=== PATIENT | female | born 1960 | race Caucasian/White ===

== ENCOUNTER → 2018-02-03 10:47 | Outpatient (CLI) | payer BC, SELFPAY ==
--- NOTE | 2018-02-03 10:49 | MM_ITS ---
MM Dig screening mamm BI w/CAD CAD Screening COMPARISON: Digital mammograms 09/17/2014 and 07/09/2013 INDICATION: There is a history of breast cancer patient's mother diagnosed after menopause TECHNIQUE: Standard CC and MLO images were obtained. R2 CAD reviewed. FINDINGS: The breasts are composed primarily of fat with minimal scattered fiber glandular densities throughout each breast. There are few benign-appearing calcifications left breast. There is no suspicious lesion and there are no suspicious microcalcifications. IMPRESSION: Fibrofatty parenchyma with no suspicious lesion seen BI-RADS Category: 2 Benign Finding(s) RECOMMENDED FOLLOW-UP: 1YR - 1 YEAR FOLLOW-UP (A letter has been sent to the patient regarding results of the study.)
== END ==
PROVIDERS: PCP Internal Medicine Adolescent Medicine; Visit Provider Obstetrics & Gynecology
DX: Z12.31 Encounter for screening mammogram for malignant neoplasm of breast (principal)
CPT/HCPCS: 77067

== ENCOUNTER → 2021-10-05 12:42 | Outpatient (CLI) | payer MEDICAID, SELFPAY | PROVIDERS: PCP Internal Medicine Adolescent Medicine; Visit Provider Internal Medicine Adolescent Medicine | DX: R40.0 Somnolence; G47.33 Obstructive sleep apnea (adult) (pediatric) | CPT/HCPCS: 95806 ==

== ENCOUNTER → 2022-04-12 08:14 | Outpatient (CLI) | payer MEDICAID, SELFPAY ==
--- NOTE | 2022-04-12 08:20 | MM_ITS ---
PROCEDURE INFORMATION: Exam: MG Bilateral Screening 3D Mammography Exam date and time: 04/12/2022 8:24 AM Age: 61 years old Clinical indication: Screening examination. Her mother had breast cancer at age 60. TECHNIQUE: Imaging protocol: Bilateral Screening tomosynthesis and 2D mammography including computer-aided detection (CAD) when performed. COMPARISON: 1. MG SCBI MM Dig screening mamm BI w/CAD 02/03/2018 11:04 AM 2. MG DMSB DIG MAMM-SCREEN SHANNON 09/17/2014 10:16 AM 3. MG DMSB DIG MAMM-SCREEN SHANNON 07/09/2013 9:42 AM 4. MG DMSB DIGITAL MAMM-SCREEN BILATERAL 07/03/2012 8:33 AM FINDINGS: MAMMOGRAPHY: Breast composition: The breasts are almost entirely fatty. Mass: Oval 0.6 cm mass in the inner lower aspect of the right subareolar region, anterior 3rd. Architectural distortion: None. Calcifications: No suspicious calcifications. Asymmetric density: None. Skin thickening: None. Axillary adenopathy: None. IMPRESSION: Patient to be recalled for right sonography for further evaluation of right breast mass. ASSESSMENT: BI-RADS Category 0: Incomplete- Need Additional Imaging Evaluation and/or Prior Mammograms for Comparison
== END ==
PROVIDERS: PCP Internal Medicine Adolescent Medicine; Visit Provider Internal Medicine Adolescent Medicine
DX: Z12.31 Encounter for screening mammogram for malignant neoplasm of breast (principal)
CPT/HCPCS: 77063; 77067

== ENCOUNTER → 2022-04-27 14:12 | Outpatient (CLI) | payer MEDICAID, SELFPAY ==
--- NOTE | 2022-04-27 14:23 | US_ITS ---
FINAL REPORT CLINICAL HISTORY: LYMPHADENITIS FINDINGS: SOFT TISSUE NECK ULTRASOUND Limited sonographic images were obtained of the soft tissues of the neck. The parotid and submandibular glands are unremarkable bilaterally. There are several borderline sized and mildly enlarged bilateral neck lymph nodes. Largest node is on the left measuring up to 2.2 cm. IMPRESSION: Nonspecific borderline sized and mildly enlarged bilateral lymph nodes may be reactive. Should symptoms persist follow-up ultrasound or neck CT may be helpful. Reviewed, Interpreted and Dictated by Pawan Lambert III, MD Transcribed by Steve Lake Authenticated and [facility]
--- NOTE | 2022-04-27 14:58 | US_ITS ---
PROCEDURE INFORMATION: Exam: US Right Breast, Complete Exam date and time: 04/27/2022 3:44 PM Age: 61 years old Clinical indication: Recall on the basis of screening mammogram 04/12/2022 for sonographic evaluation 0.6 cm mass in the inner lower aspect of the right subareolar region TECHNIQUE: Imaging protocol: Complete ultrasound of all four quadrants of the Right breast and the retroareolar regions, including ultrasound of the axilla when performed. COMPARISON: MG MM DIG SCREENING MAMM BI W/CAD 04/12/2022 8:24 AM FINDINGS: Breast: Right sonography, all 4 quadrants, retroareolar and axilla demonstrates, in the retroareolar region, a cyst with minimal internal echoes which may be artifactual, measuring 0.6 x 0.5 by 0.4 cm, which correlates to the mammographic finding. Sonographically unremarkable right axillary lymph node. IMPRESSION: Screening detected mass corresponds to a probably benign 0.6 cm cyst in the retroareolar region, suggest six-month follow-up right diagnostic mammogram and targeted right sonography, unless otherwise indicated. ASSESSMENT: BI-RADS Category 3: Probably benign
== END ==
PROVIDERS: PCP Internal Medicine Adolescent Medicine; Visit Provider Internal Medicine Adolescent Medicine
DX: I88.9 Nonspecific lymphadenitis, unspecified (principal); R92.8 Other abnormal and inconclusive findings on diagnostic imaging of breast
CPT/HCPCS: 76536; 76641

== ENCOUNTER 2022-09-24 06:21 | Day surgery (SDC) | payer MEDICAID, SELFPAY ==
[2022-09-24 06:49] VITALS: BMI 43.8
[2022-09-24 06:52] VITALS: BP 150/76; PULSE 60; RESP 20; TEMP 36.1; O2SAT 95
--- NOTE | 2022-09-24 07:07 | P.PN_ITS ---
[facility] Disclaimer: The information contained in this section may have been updated after the patient was seen, as this information can be updated by other users. Medical History History of COVID-19 Hyperlipidemia Hypertension Surgical History History of colonoscopy History of hysterectomy Family History Other Family history of cancer Family history of hyperlipidemia Family history of hypertension Family history of stroke Social History Smoking Status: Former smoker alcohol intake: current substance use type: denies use current occupational status: employed Travel in the last 8 weeks: None caffeine: Yes do you feel safe at home: Yes victim of physical abuse: No victim of emotional abuse: No victim of sexual abuse: No would you like helpful sources: No [facility] Anesthesia Checklist Patient Identification Patient Identification: Arm Band and Verbal (Name & ) Structural Data Admitted From: Home Planned Operative Procedure/s: Colonoscopy Consent for Planned Operative Procedure(s) Verified: Yes NPO Status Verified Time NPO: 00:00 Airway Assessment C-Spine Mobility Assessed: Yes TMJ Mobility Assessed: Yes Dentition: Good Dentition Neurological Assessment Level of Consciousness: Awake Hx Seizures: No Numbness or tingling in extremities: No Anesthesia Plan Anesthesia Risk discussed: Yes Anesthesia Plan: Verified ASA Class: III Anesthesia Type: MAC
[2022-09-24 07:18] VITALS: O2SAT 95
--- NOTE | 2022-09-24 07:48 | HMH.SCOPE ---
Procedure: Date: 09/24/22 Patient Date of :: 1960 Procedure Performed:: Total colonoscopy to terminal ileum with polypectomy using snare and biopsy Indications:: Patient is a 62-year-old female. She had undergone a couple previous colonoscopies. She states that she had a colonoscopy done and had polyps removed. The record reveals that Dr. Garcia had performed colonoscopy 10/03/2015 at which time she had a small polyp removed with biopsy and a pedunculated polyp in the sigmoid colon removed with snare. She has some diverticulosis. He had recommended a repeat colonoscopy 6 to 12 months. Patient does state that she has had a subsequent colonoscopy but I have no record of this. She states that that was unremarkable. Performing Provider:: Pawan Wylie MD Referring Provider:: Osiel Frost MD Sedation:: MAC sedation Procedure:: Patient history was obtained and appropriate physical examination was performed. Patient's medications and allergies were reviewed. Informed consent was obtained after explaining the benefits, alternatives, and risks of the procedure including, but not limited to, bleeding, perforation, missed lesions, and adverse reaction to anesthesia medications. Patient was transported to endoscopy procedure room. Patient was connected to monitoring devices. Throughout the procedure the patient's blood pressure, pulse, and oxygen saturations were monitored continuously. Patient identification and planned procedure were verified by the staff. Patient was positioned in lateral decubitus position. Digital anorectal exam was performed. Variable stiffness Olympus colonoscope was inserted and advanced under direct visualization to the cecum. Adequacy of the colonic preparation was noted. The colonoscope was advanced a short distance into the terminal ileum. The colonoscope was then slowly withdrawn while carefully examining the color, texture, anatomy, and integrity of the mucosoa circumferentially. Within the rectum retroflexion was performed. Colonoscope was then withdrawn. Findings:: Colonic preparation was excellent. There was a tiny polyp in the descending colon removed with cold snare. There was a minuscule diminutive polyp in the distal sigmoid removed with biopsy forceps. She had some sigmoid diverticulosis. There was some spasticity and lack of relaxation in the sigmoid colon Impression: Polyps as noted above Recommendations:: Repeat colonoscopy pending pathology. Likely 5 to 7 years Complications:: None immediate Estimated blood obtained (mL): 1
[2022-09-24 07:50] VITALS: BP 97/59; PULSE 74; RESP 16; TEMP 36.5; O2SAT 93
[2022-09-24 08:00] VITALS: BP 98/66; PULSE 71; RESP 16; O2SAT 93
[2022-09-24 08:10] VITALS: BP 120/64; PULSE 65; RESP 16; O2SAT 93
[2022-09-24 08:20] VITALS: BP 132/75; PULSE 65; RESP 17; TEMP 36.6; O2SAT 95
== END 2022-09-24 08:24 | disposition home or self-care (01) ==
PROVIDERS: PCP Internal Medicine Adolescent Medicine; Visit Provider Surgery
PROC: 0DJD8ZZ Inspection of Lower Intestinal Tract, Via Natural or Artificial Opening Endoscopic (ICD-10-PCS; CPT 45385; principal; 2022-09-24 07:30)
DX: Z12.11 Encounter for screening for malignant neoplasm of colon (principal); D12.4 Benign neoplasm of descending colon; D12.5 Benign neoplasm of sigmoid colon; Z79.899 Other long term (current) drug therapy
CPT/HCPCS: 45385; 45380

== ENCOUNTER → 2022-11-12 12:50 | Outpatient (CLI) | payer MEDICAID, SELFPAY ==
--- NOTE | 2022-11-12 12:55 | MM_ITS ---
PROCEDURE INFORMATION: Exam: US Right Breast, Complete MG Right Diagnostic Breast Tomosynthesis Exam date and time: 11/12/2022 1:42 PM Age: 62 years old Clinical indication: Short-term radiographic followup; Right breast; probable cyst TECHNIQUE: Imaging protocol: Complete ultrasound of all four quadrants of the right breast and the retroareolar regions, including ultrasound of the axilla when performed. Right Diagnostic tomosynthesis and 2D mammography including computer-aided detection (CAD) when performed. Unilateral or bilateral exam. COMPARISON: US BREAST RT COMPLETE 04/27/2022 3:44 PM FINDINGS: MAMMOGRAPHY: The breast tissue is almost entirely fatty. There is no stellate mass, architectural distortion or suspicious microcalcifications in either breast to suggest malignancy. No new or suspicious masses. Stable 0.5 cm mass in the anterior right upper inner quadrant. No skin thickening or axillary adenopathy. ULTRASOUND: Sonographic images of the right breast including the retroareolar region, all 4 quadrants and the axilla do not demonstrate any solid masses. 0.6 cm 2 o'clock retroareolar cyst. No architectural distortion or acoustical shadowing. No skin thickening or axillary adenopathy. IMPRESSION: No mammographic or sonographic evidence of malignancy. Benign cyst in the right breast.Annual bilateral mammographic screening is recommended in March 2023 unless otherwise clinically indicated. ASSESSMENT: BI-RADS Category 2: Benign
== END ==
PROVIDERS: PCP Internal Medicine Adolescent Medicine; Visit Provider Internal Medicine Adolescent Medicine
DX: R92.8 Other abnormal and inconclusive findings on diagnostic imaging of breast (principal)
CPT/HCPCS: 76641; 77061; 77065; G0279

== ENCOUNTER → 2023-02-24 12:55 | Outpatient (CLI) | payer MEDICAID, SELFPAY ==
--- NOTE | 2023-02-24 13:00 | XR_ITS ---
FINAL REPORT CLINICAL HISTORY: LT FOOT PAIN COMPARISON: None FINDINGS: LEFT FOOT: Three views of the left foot were obtained. There is no acute fracture or dislocation. Mild degenerative changes present. A pes planus deformity is noted. Calcaneal spurs are present as well. There is no soft tissue abnormality. IMPRESSION: Mild degenerative change, with a pes planus deformity. Reviewed, Interpreted and Dictated by Pawan Lambert III, MD Transcribed by Anahi Villaseñor Authenticated and [facility]
== END ==
PROVIDERS: PCP Internal Medicine Adolescent Medicine; Visit Provider Nurse Practitioner Family
DX: M79.672 Pain in left foot (principal)
CPT/HCPCS: 73630

== ENCOUNTER 2024-07-20 09:02 | Outpatient (CLI) | payer MEDICAID, SELFPAY ==
--- NOTE | 2024-07-20 09:05 | CT_ITS ---
FINAL REPORT TECHNIQUE: Axial CT without IV contrast administration using low dose protocol. This study was performed with techniques to keep radiation doses as low as reasonably achievable, (ALARA). Individualized dose reduction techniques using automated exposure control or adjustment of mA and/or kV according to the patient's size were employed. CLINICAL HISTORY: Screening exam for lung cancer. Former smoker, quit 7 years ago, 1ppd x40 years COMPARISON: None FINDINGS: CT CHEST LOW DOSE SCREENING DOSE: CTDI vol: 2.90 mGy, DLP: 90.12 mGy*cm There is a faint 4 mm nodule mid left major fissure on image 39 series 3, most likely an intrafissural lymph node. There is a subpleural lingular nodule measuring 3 mm on image 47 series 3. There is evidence of old calcified granulomatous disease. No pleural or pericardial effusion is seen. No adenopathy or mass lesion is present. IMPRESSION: Small lung nodules as above, likely benign inflammatory. LUNG RADS CATEGORY 2 RECOMMENDATION: 12 month LDCT follow up Reviewed, Interpreted and Dictated by Vanessa Shook MD Transcribed by Kiersten Sánchez Authenticated and [facility]
--- NOTE | 2024-07-20 09:07 | MM_ITS ---
PROCEDURE INFORMATION: Exam: MG Bilateral Screening 3D Mammography Exam date and time: 07/20/2024 9:43 AM Age: 64 years old Clinical indication: Screening examination TECHNIQUE: Imaging protocol: Bilateral Screening tomosynthesis and 2D mammography including computer-aided detection (CAD) when performed. COMPARISON: 1. MG MM DIG MAMM DX UNILAT RT CAD 11/12/2022 12:46 PM 2. MG MM DIG SCREENING MAMM BI W/CAD 04/12/2022 8:24 AM FINDINGS: MAMMOGRAPHY: Breast composition: There are scattered areas of fibroglandular density. Mass: None. Architectural distortion: None. Calcifications: No suspicious calcifications. Asymmetric density: None. Skin thickening: None. Axillary adenopathy: None. IMPRESSION: No mammographic evidence of malignancy. Annual screening is recommended unless otherwise clinically indicated. ASSESSMENT: BI-RADS Category 1: Negative.
== END 2024-07-20 23:59 | disposition home or self-care (01) ==
LOC: RAD 09:03
PROVIDERS: PCP Internal Medicine Adolescent Medicine; Visit Provider Internal Medicine Adolescent Medicine
DX: Z12.31 Encounter for screening mammogram for malignant neoplasm of breast (principal); Z87.891 Personal history of nicotine dependence
CPT/HCPCS: 71271; 77063; 77067